=== PATIENT | male | born 1965 | race African-American/Black ===

== ENCOUNTER 2020-04-20 17:22 | Emergency (ER) | payer SELFPAY ==
[~2020-04-20] VITALS: Ht 172.7 cm; Wt 78.0 kg
--- NOTE | 2020-04-20 17:38 | NUR ---
THIS IS A 54 YO M BIB EMS. PT CALLED AFTER ARRIVING IN [place] ON BUS FROM . PT REPORTS NEW ONSET AUDITORY/VISUAL HALLUCINATIONS DURING BUS RIDE. VOICES TELLING HIM TO JUMP INFRONT OF A CAR. PT REPORTS HX OF SCHITZOPHRENIA AND HTN, HAS NOT BEEN ON MEDICATIONS. PT CHANGED INTO GOWN, BELONGINGS TO SAFE KEEPING. SECURITY AT BEDSIDE TO TAKE PTS $[id number] SALMON IN [place] TO SAFE. PT COOPERATIVE W/ ED PROCESS. PT RESTING ON GURNEY W/ CALL LIGHT IN REACH AND SIDE RAIL UP. EDUCATED ON NEED FOR URINE SAMPLE. RESP EVEN AND UNLABORED, NADN. AWAITING ED EVAL.
--- NOTE | 2020-04-20 17:47 | NUR ---
REPORT GIVEN TO ED MEDEL & GLADIS MEDEL. SITTER AT BEDSIDE.
[2020-04-20 18:33] LABS: BASOPHILS % (AUTO) 1 % (0-1); EOSINOPHILS % (AUTO) 2 % (1-7); LYMPHOCYTES % (AUTO) 19 % (22-44); MD NO; MEAN CORPUSCULAR HEMOGLOBIN 30.7 pg (27.5-34.5); MEAN CORPUSCULAR HGB CONC 33.7 g/dL (33.2-36.2); MEAN PLATELET VOLUME 8.7 fL (7.4-10.4); MONOCYTES % (AUTO) 8 % (2-9); NEUTROPHILS % (AUTO) 70 % (42-75); PLATELET COUNT 216 x10^3/uL (130-400); RED BLOOD COUNT 4.76 x10^6/uL (4.38-5.82)
[2020-04-20 18:44] LABS: ALANINE AMINOTRANSFERASE 53 U/L (12-78); ALBUMIN 3.6 g/dL (3.4-5.0); ANION GAP 7 mmol/L (5-15); CALCIUM 8.4 mg/dL (8.5-10.1); CHLORIDE 106 mmol/L (98-107); CREATININE 0.97 mg/dL (0.7-1.3)
[2020-04-20 18:46] LABS: ALKALINE PHOSPHATASE 48 U/L (45-117); BILIRUBIN,TOTAL 0.4 mg/dL (0.2-1.0); SALICYLATE LEVEL < 1.7 mg/dL (2.8-20.0); TOTAL PROTEIN 7.7 g/dL (6.4-8.2)
--- NOTE | 2020-04-20 18:52 | NUR ---
MUTUEL CLERK AT BEDSIDE.
[2020-04-20 18:58] VITALS: BP 157/102
[2020-04-20] MEDS ORDERED: AMLODIPINE 5 MG TABLET ONE (18:59)
[2020-04-20] MEDS ORDERED: AMLODIPINE 5 MG TABLET PO ONE (19:00)
== END 2020-04-20 19:44 | disposition home or self-care (01) ==
LOC: ED 19:30
DX: R45.851 Suicidal ideations (principal); F39 Unspecified mood [affective] disorder; F20.9 Schizophrenia, unspecified; I10 Essential (primary) hypertension
CPT/HCPCS: 36415; 80053; 80299; 80320; 80329; 85025; 93005; 99284; G0480

== ENCOUNTER 2020-04-24 19:55 | Emergency (ER) | payer SELFPAY ==
[~2020-04-24] VITALS: Ht 175.3 cm; Wt 82.0 kg
--- NOTE | 2020-04-24 20:37 | NUR ---
PT STATES HE WAS WALKING ON HIS WAY TO THE ASSISTED AND FELT HIS LEGS GET WEAK AND ASSISTED HIMSELF TO THE GROUND AND CALLED A TAXI HERE. PT DESCRIBES LEG PAIN SHARP AND BURNING AROUND CALFS. LEGS NOT SWOLLEN, CMS INTACT, AWAITNG ERP EVAL
[2020-04-24 21:32] LABS: BASOPHILS % (AUTO) 1 % (0-1); EOSINOPHILS % (AUTO) 3 % (1-7); LYMPHOCYTES % (AUTO) 18 % (22-44); MEAN CORPUSCULAR HEMOGLOBIN 30.7 pg (27.5-34.5); MEAN CORPUSCULAR HGB CONC 33.9 g/dL (33.2-36.2); MONOCYTES % (AUTO) 6 % (2-9); NEUTROPHILS % (AUTO) 72 % (42-75); PLATELET COUNT 185 x10^3/uL (130-400); RED BLOOD COUNT 4.74 x10^6/uL (4.38-5.82); RED CELL DISTRIBUTION WIDTH 14.4 % (9.4-14.8)
[2020-04-24 21:33] LABS: MD NO
[2020-04-24 21:40] LABS: ALBUMIN 3.8 g/dL (3.4-5.0); ANION GAP 6 mmol/L (5-15); CALCIUM 8.2 mg/dL (8.5-10.1); CHLORIDE 109 mmol/L (98-107); CREATININE 0.79 mg/dL (0.7-1.3)
[2020-04-24 21:54] VITALS: BP 145/100
--- NOTE | 2020-04-24 22:06 | NUR ---
PT AMBULATING STEADY OUT TO LOBBY
== END 2020-04-24 22:09 | disposition home or self-care (01) ==
LOC: ED 20:19
DX: R53.1 Weakness (principal); I10 Essential (primary) hypertension; Z72.9 Problem related to lifestyle, unspecified; W01.0XXA Fall on same level from slipping, tripping and stumbling without subsequent striking against object, initial encounter; Y93.89 Activity, other specified; Y92.89 Other specified places as the place of occurrence of the external cause; Y99.8 Other external cause status
CPT/HCPCS: 36415; 80048; 82040; 85025; 99283

== ENCOUNTER 2020-04-29 21:48 | Emergency (ER) | payer SELFPAY ==
[~2020-04-29] VITALS: Ht 177.8 cm; Wt 81.2 kg
[2020-04-29] MEDS ORDERED: ACETAMINOPHEN 500 MG TABLET PO ONE (22:00)
[2020-04-29] MEDS ORDERED: ACETAMINOPHEN 500 MG TABLET ONE (22:13)
[2020-04-29 23:29] VITALS: BP 181/97
== END 2020-04-29 23:30 | disposition home or self-care (01) ==
LOC: ED 22:38
DX: S39.012A Strain of muscle, fascia and tendon of lower back, initial encounter (principal); Z76.0 Encounter for issue of repeat prescription; I10 Essential (primary) hypertension; X58.XXXA Exposure to other specified factors, initial encounter; Y93.89 Activity, other specified; Y92.89 Other specified places as the place of occurrence of the external cause; Y99.8 Other external cause status
CPT/HCPCS: 72110; 99283

== ENCOUNTER 2020-05-06 18:12 | Emergency (ER) | payer MEDICAID ==
[~2020-05-06] VITALS: Ht 172.7 cm; Wt 81.5 kg
--- NOTE | 2020-05-06 19:00 | NUR ---
PT AMBULATORY TO ROOM 31 W/ C/O ETOH USE. PT STATES HE HAS BEEN SOBER X 1 WEEK AND RELAPSED TODAY AND DRANK 1 PINT GIN. PT HERE FOR RESOURCES AND WOULD LIKE [facility] TO SEND PT TO RE[facility]ENTER. PT RESTING ON [place]. NADN. CHAN.
--- NOTE | 2020-05-06 20:31 | NUR ---
PT RESTING ON GURNEY. NADN. CHAN.
--- NOTE | 2020-05-06 20:42 | NUR ---
report recieved from sherwin garza
--- NOTE | 2020-05-06 20:50 | NUR ---
REPORT GIVEN TO LIZY JUSTIN.
[2020-05-06 21:38] VITALS: BP 137/99
--- NOTE | 2020-05-06 21:39 | NUR ---
PATIENT CLEARED FOR DISCHARGE. NO NOTED NEEDS AT THIS TIME. PATIENT VERBALIZED UNDERSTANDING OF SELF CARE AND FOLLOW UP CARE AT HOME. GIVEN TAXI VOUCHER TO WELL CARE PER PATIENT'S REQUEST. AMBULATORY TO DISCHARGE WITH BELONGINGS WITHOUT COMPLICATIONS.
== END 2020-05-06 21:41 | disposition home or self-care (01) ==
LOC: ED 19:04
DX: F10.129 Alcohol abuse with intoxication, unspecified (principal); I10 Essential (primary) hypertension; Z72.9 Problem related to lifestyle, unspecified; Y90.0 Blood alcohol level of less than 20 mg/100 ml
CPT/HCPCS: 99281

== ENCOUNTER 2020-05-07 12:52 | Emergency (ER) | payer MEDICAID ==
[~2020-05-07] VITALS: Ht 175.3 cm; Wt 80.9 kg
--- NOTE | 2020-05-07 13:01 | NUR ---
[employer]F SALES ASSOCIATE. PT TO LOBBY FROM [facility]. PT DENIES SI/HI NO ETOH ON BOARD
[2020-05-07 13:04] VITALS: BP 134/98
--- NOTE | 2020-05-07 14:15 | NUR ---
pt presents to ED with c/o SI secondary to hearing negative voices, pt has hx schizophrenia. pt states his plan is to walk in traffic. pt denies recent suicide attempt. pt is a&o, calm and cooperative, asking for a sandwich on initial contact. pt in gown, belongings in pt locker. pt given sandwich. awaiting orders from provider.
--- NOTE | 2020-05-07 15:52 | NUR ---
BREAK RN: DEX BOOTHE IN ROOM. NO ACUTE DISTRESS NOTED. SITTER AT OUTSIDE THE DOOR. WILL CONTINUE TO MONITOR WHILE PRIMARY RN IS ON BREAK.
[2020-05-07] MEDS ORDERED: OLANZAPINE ODT 10MG PO ONE (16:00)
--- NOTE | 2020-05-07 16:07 | NUR ---
BREAK RN: SLIP SENT TO THE PHARMACY
--- NOTE | 2020-05-07 16:41 | NUR ---
REPORT GIVEN TO LIZY CLIFFORD
--- NOTE | 2020-05-07 17:00 | NUR ---
late entry d/t patient care: pt resting on gurney, a&o, resps even and unlabored. room secure, sitter monitoring from [facility] for safety.
--- NOTE | 2020-05-07 18:00 | NUR ---
late entry d/t patient care: pt sleeping on gurney, resps even and unlabored. room secure, sitter monitoring from [facility] for safety.
--- NOTE | 2020-05-07 19:00 | NUR ---
report given at bedside to LIZY Cole. pt sleeping on gurney, resps even and unlabored.
--- NOTE | 2020-05-07 19:19 | NUR ---
pt denies any memory of speaking with curly. pt refers to her at [facility]" pt expects us to board him here. pt dishcarged with rx
== END 2020-05-07 19:20 | disposition home or self-care (01) ==
LOC: ED 13:13
DX: F20.89 Other schizophrenia (principal); I10 Essential (primary) hypertension
CPT/HCPCS: 99283

== ENCOUNTER 2020-05-25 08:18 | Emergency (ER) | payer MEDICAID ==
[~2020-05-25] VITALS: Ht 170.2 cm; Wt 83.5 kg
--- NOTE | 2020-05-25 08:36 | NUR ---
PT brought back from triage with chief complaint of hearing voices to hurt himself. Pt states voices are telling him "to jump in front of a car." PT also states hx of schizo, but not taking meds. Belongings placed in locker, safety precautions in place. Dameon DAVIDSON at bedside for evaluation.
[2020-05-25 08:49] VITALS: BP 137/92
[2020-05-25 09:02] LABS: BASOPHILS % (AUTO) 1 % (0-1); EOSINOPHILS % (AUTO) 2 % (1-7); LYMPHOCYTES % (AUTO) 24 % (22-44); MEAN CORPUSCULAR HEMOGLOBIN 30.7 pg (27.5-34.5); MEAN CORPUSCULAR HGB CONC 33.8 g/dL (33.2-36.2); MEAN PLATELET VOLUME 9.3 fL (7.4-10.4); MONOCYTES % (AUTO) 5 % (2-9); NEUTROPHILS % (AUTO) 68 % (42-75); PLATELET COUNT 197 x10^3/uL (130-400); RED BLOOD COUNT 5.09 x10^6/uL (4.38-5.82); RED CELL DISTRIBUTION WIDTH 14.4 % (9.4-14.8)
[2020-05-25 09:10] LABS: MD NO
[2020-05-25 09:11] LABS: ALANINE AMINOTRANSFERASE 126 U/L (12-78); ALBUMIN 4.2 g/dL (3.4-5.0); ANION GAP 5 mmol/L (5-15); CHLORIDE 106 mmol/L (98-107); CREATININE 0.94 mg/dL (0.7-1.3)
[2020-05-25 09:18] LABS: ALKALINE PHOSPHATASE 55 U/L (45-117); BILIRUBIN,TOTAL 0.4 mg/dL (0.2-1.0); TOTAL PROTEIN 8.3 g/dL (6.4-8.2)
[2020-05-25 09:20] LABS: SALICYLATE LEVEL < 1.7 mg/dL (2.8-20.0)
[2020-05-25 09:24] LABS: AMPHETAMINE SCREEN, URINE Negative (Negative); BARBITURATE SCREEN, URINE Negative (Negative)
[2020-05-25 09:27] LABS: BENZODIAZEPINE SCREEN, URINE Negative (Negative); CANNABINOID SCREEN, URINE Negative (Negative); COCAINE SCREEN, URINE Negative (Negative); METHADONE SCREEN, URINE Negative (Negative); OPIATE SCREEN, URINE Negative (Negative)
--- NOTE | 2020-05-25 09:33 | NUR ---
INES Murillo at bedside for evaluation. snack provided, safety precautions in place.
--- NOTE | 2020-05-25 10:08 | NUR ---
Levar TRUCK HOPPER at bedside for eval
[2020-05-25] MEDS ORDERED: OLANZAPINE 10 MG TABLET PO SCH (10:30)
[2020-05-25] MEDS ORDERED: OLANZAPINE 10 MG TABLET ONE (10:36)
--- NOTE | 2020-05-25 10:51 | NUR ---
report to vladimir MEDEL. Belongings returned to PT
== END 2020-05-25 11:05 | disposition home or self-care (01) ==
LOC: ED 08:32
DX: Z00.8 Encounter for other general examination (principal); Z91.14 Patient's other noncompliance with medication regimen; F20.9 Schizophrenia, unspecified; I10 Essential (primary) hypertension
CPT/HCPCS: 36415; 80053; 80299; 80307; 80320; 80329; 85025; 99283; G0480